=== PATIENT | female | born 1945 | race Caucasian/White ===

== ENCOUNTER 2019-02-22 09:04 | Outpatient (RCR) | payer MEDICARE, MEDICAID | END 2019-03-01 17:27 | disposition home or self-care (01) | LOC: OPPGERO 09:04 | DX: F33.2 Major depressive disorder, recurrent severe without psychotic features (principal); Z87.891 Personal history of nicotine dependence; I10 Essential (primary) hypertension; E78.5 Hyperlipidemia, unspecified; I48.0 Paroxysmal atrial fibrillation; E11.9 Type 2 diabetes mellitus without complications; I25.10 Atherosclerotic heart disease of native coronary artery without angina pectoris; N28.9 Disorder of kidney and ureter, unspecified ==

== ENCOUNTER 2019-03-02 09:33 | Outpatient (RCR) | payer MEDICARE, MEDICAID | END 2019-03-31 12:57 | LOC: OPPGERO 09:33 | DX: F33.2 Major depressive disorder, recurrent severe without psychotic features (principal); F43.21 Adjustment disorder with depressed mood; I10 Essential (primary) hypertension; E78.5 Hyperlipidemia, unspecified; I48.0 Paroxysmal atrial fibrillation; E11.9 Type 2 diabetes mellitus without complications; I65.29 Occlusion and stenosis of unspecified carotid artery; Z79.82 Long term (current) use of aspirin; Z79.899 Other long term (current) drug therapy ==

== ENCOUNTER 2019-04-02 16:39 | Outpatient (RCR) | payer MEDICARE, MEDICAID | END 2019-05-01 14:02 | disposition still patient (30) | LOC: OPPGERO 16:39 | DX: F33.2 Major depressive disorder, recurrent severe without psychotic features (principal); F43.21 Adjustment disorder with depressed mood; I10 Essential (primary) hypertension; F17.200 Nicotine dependence, unspecified, uncomplicated; E78.5 Hyperlipidemia, unspecified; I48.2 Chronic atrial fibrillation; E11.9 Type 2 diabetes mellitus without complications; I65.29 Occlusion and stenosis of unspecified carotid artery; Z79.82 Long term (current) use of aspirin ==

== ENCOUNTER 2019-05-02 11:32 | Outpatient (RCR) | payer MEDICARE, MEDICAID | END 2019-06-01 15:26 | disposition still patient (30) | LOC: OPPGERO 11:32 | DX: F33.2 Major depressive disorder, recurrent severe without psychotic features (principal); F43.21 Adjustment disorder with depressed mood; I10 Essential (primary) hypertension; F17.200 Nicotine dependence, unspecified, uncomplicated; E78.5 Hyperlipidemia, unspecified; I48.0 Paroxysmal atrial fibrillation; E11.9 Type 2 diabetes mellitus without complications; I65.29 Occlusion and stenosis of unspecified carotid artery; Z90.89 Acquired absence of other organs; Z98.51 Tubal ligation status; Z98.891 History of uterine scar from previous surgery; Z79.1 Long term (current) use of non-steroidal anti-inflammatories (NSAID); Z79.899 Other long term (current) drug therapy ==

== ENCOUNTER 2019-06-02 08:48 | Outpatient (RCR) | payer MEDICARE, MEDICAID | END 2019-06-28 14:27 | disposition still patient (30) | LOC: OPPGERO 08:48 | DX: F33.2 Major depressive disorder, recurrent severe without psychotic features (principal); F43.21 Adjustment disorder with depressed mood; I10 Essential (primary) hypertension; F17.200 Nicotine dependence, unspecified, uncomplicated; E78.5 Hyperlipidemia, unspecified; I48.0 Paroxysmal atrial fibrillation; E11.9 Type 2 diabetes mellitus without complications; I65.29 Occlusion and stenosis of unspecified carotid artery; Z79.899 Other long term (current) drug therapy; Z90.89 Acquired absence of other organs; Z98.51 Tubal ligation status ==

== ENCOUNTER 2019-07-03 08:10 | Outpatient (RCR) | payer MEDICARE, MEDICAID | END 2019-08-01 12:34 | disposition still patient (30) | LOC: OPPGERO 08:10 | DX: F33.2 Major depressive disorder, recurrent severe without psychotic features (principal); F43.21 Adjustment disorder with depressed mood; I10 Essential (primary) hypertension; E78.5 Hyperlipidemia, unspecified; I48.0 Paroxysmal atrial fibrillation; E11.9 Type 2 diabetes mellitus without complications; I25.10 Atherosclerotic heart disease of native coronary artery without angina pectoris; N28.9 Disorder of kidney and ureter, unspecified; Z90.89 Acquired absence of other organs; Z98.51 Tubal ligation status; Z79.82 Long term (current) use of aspirin; Z79.899 Other long term (current) drug therapy ==

== ENCOUNTER 2019-08-03 10:58 | Outpatient (RCR) | payer MEDICARE, MEDICAID | END 2019-09-01 14:16 | LOC: OPPGERO 10:58 | DX: F33.2 Major depressive disorder, recurrent severe without psychotic features (principal); F43.21 Adjustment disorder with depressed mood; I10 Essential (primary) hypertension; I48.0 Paroxysmal atrial fibrillation; E11.9 Type 2 diabetes mellitus without complications; I25.10 Atherosclerotic heart disease of native coronary artery without angina pectoris; F17.200 Nicotine dependence, unspecified, uncomplicated; Z79.82 Long term (current) use of aspirin; Z79.899 Other long term (current) drug therapy; Z98.51 Tubal ligation status; Z90.89 Acquired absence of other organs ==

== ENCOUNTER 2019-09-06 07:54 | Outpatient (RCR) | payer MEDICARE, MEDICAID | END 2019-09-13 13:57 | LOC: OPPGERO 07:54 | DX: F33.1 Major depressive disorder, recurrent, moderate (principal); F41.1 Generalized anxiety disorder; F43.12 Post-traumatic stress disorder, chronic; M79.7 Fibromyalgia; E78.2 Mixed hyperlipidemia; J45.30 Mild persistent asthma, uncomplicated; G43.909 Migraine, unspecified, not intractable, without status migrainosus; Z63.4 Disappearance and death of family member; Z79.51 Long term (current) use of inhaled steroids; Z79.82 Long term (current) use of aspirin ==

== ENCOUNTER 2019-09-27 07:37 | Outpatient (RCR) | payer MEDICARE, MEDICAID | END 2019-09-29 14:28 | LOC: OPPGERO 07:37 | DX: F33.1 Major depressive disorder, recurrent, moderate (principal); R69 Illness, unspecified; Z79.82 Long term (current) use of aspirin; Z79.899 Other long term (current) drug therapy ==

== ENCOUNTER 2019-10-02 07:49 | Outpatient (RCR) | payer MEDICARE, MEDICAID | END 2019-10-31 13:24 | LOC: OPPGERO 07:49 | DX: F33.1 Major depressive disorder, recurrent, moderate (principal); R69 Illness, unspecified; Z79.82 Long term (current) use of aspirin; Z79.899 Other long term (current) drug therapy ==

== ENCOUNTER 2019-12-01 08:19 | Outpatient (RCR) | payer MEDICARE, MEDICAID | END 2019-12-29 15:15 | disposition still patient (30) | LOC: OPPGERO 08:19 | DX: F33.1 Major depressive disorder, recurrent, moderate (principal); Z79.82 Long term (current) use of aspirin; Z79.899 Other long term (current) drug therapy ==

== ENCOUNTER 2020-01-01 09:24 | Outpatient (RCR) | payer MEDICARE, MEDICAID | END 2020-01-30 16:08 | LOC: OPPGERO 09:24 | DX: F33.1 Major depressive disorder, recurrent, moderate (principal); E78.5 Hyperlipidemia, unspecified; N18.4 Chronic kidney disease, stage 4 (severe); I12.9 Hypertensive chronic kidney disease with stage 1 through stage 4 chronic kidney disease, or unspecified chronic kidney disease; E11.22 Type 2 diabetes mellitus with diabetic chronic kidney disease; I25.10 Atherosclerotic heart disease of native coronary artery without angina pectoris; I48.0 Paroxysmal atrial fibrillation; T74.11XA Adult physical abuse, confirmed, initial encounter; Z63.4 Disappearance and death of family member; Z63.5 Disruption of family by separation and divorce; Z79.82 Long term (current) use of aspirin; Z79.899 Other long term (current) drug therapy; Z99.89 Dependence on other enabling machines and devices ==

== ENCOUNTER 2020-01-31 10:38 | Outpatient (RCR) | payer MEDICARE, MEDICAID | END 2020-03-01 14:13 | disposition still patient (30) | LOC: OPPGERO 10:38 | DX: F33.1 Major depressive disorder, recurrent, moderate (principal); F43.21 Adjustment disorder with depressed mood; I10 Essential (primary) hypertension; F17.200 Nicotine dependence, unspecified, uncomplicated; E78.5 Hyperlipidemia, unspecified; I48.0 Paroxysmal atrial fibrillation; E11.9 Type 2 diabetes mellitus without complications; I25.10 Atherosclerotic heart disease of native coronary artery without angina pectoris; Z63.4 Disappearance and death of family member; Z79.82 Long term (current) use of aspirin; Z79.899 Other long term (current) drug therapy; Z90.89 Acquired absence of other organs; Z91.410 Personal history of adult physical and sexual abuse; Z98.51 Tubal ligation status ==